=== PATIENT | female | born 1970 | race Caucasian/White ===

== ENCOUNTER → 2020-10-24 | Outpatient (CLI) | payer MEDICARE, OTHER | LOC: OPSV 10-12 08:00 | DX: M06.9 Rheumatoid arthritis, unspecified (principal) | CPT/HCPCS: 96365; 96366; J7050; Q5103 ==

== ENCOUNTER → 2021-04-27 | Outpatient (CLI) | payer MEDICARE, OTHER ==
[~2021-04-27] VITALS: Ht 156.2 cm; Wt 79.4 kg
[2021-04-27 09:32] LABS: BUN/CREATININE RATIO 22 (0-10)
[2021-04-27 09:42] LABS: HEMOGLOBIN 14.1 gm/dl (12.3-15.3); RED BLOOD COUNT 4.21 M/UL (4.00-5.10); WHITE BLOOD COUNT 6.3 K/UL (4.5-11.0)
== END ==
LOC: OPSV 08:00
PROVIDERS: Internal Medicine
DX: M05.9 Rheumatoid arthritis with rheumatoid factor, unspecified (principal); Z79.899 Other long term (current) drug therapy
CPT/HCPCS: 36415; 80053; 85025; 85652; 86140; 96365; 96366; 96375; J1720; J7050; Q5103

== ENCOUNTER → 2021-06-22 | Outpatient (CLI) | payer MEDICARE, OTHER ==
[~2021-06-22] VITALS: Ht 156.2 cm; Wt 79.4 kg
== END ==
LOC: OPSV 08:00
DX: M06.9 Rheumatoid arthritis, unspecified (principal)
CPT/HCPCS: 96365; 96366; 96375; J1720; J7050; Q5103

== ENCOUNTER → 2021-08-17 | Outpatient (CLI) | payer MEDICARE, OTHER ==
[2021-08-17 08:54] LABS: HEMOGLOBIN 15.5 gm/dl (12.3-15.3); RED BLOOD COUNT 4.45 M/UL (4.00-5.10); WHITE BLOOD COUNT 11.1 K/UL (4.5-11.0)
[2021-08-17 09:21] LABS: BUN/CREATININE RATIO 15 (0-10)
== END ==
LOC: OPSV 08:00
PROVIDERS: Internal Medicine
DX: M05.9 Rheumatoid arthritis with rheumatoid factor, unspecified (principal); Z79.899 Other long term (current) drug therapy; M06.9 Rheumatoid arthritis, unspecified
CPT/HCPCS: 80053; 85025; 85652; 86140; 96365; 96366; 96375; J1720; J7050; Q5103

== ENCOUNTER → 2021-10-12 | Outpatient (CLI) | payer MEDICARE, OTHER ==
[~2021-10-12] VITALS: Ht 156.2 cm; Wt 79.4 kg
== END ==
LOC: OPSV 08:00
DX: M06.9 Rheumatoid arthritis, unspecified (principal)
CPT/HCPCS: 96365; 96366; 96375; J1720; J7050; Q5103

== ENCOUNTER → 2022-01-03 | Day surgery (SDC) | payer MEDICARE, OTHER ==
[~2022-01-03] MED LIST: ALBUTEROL2.5 MG/3 M INH; BUSPIRONE HCL15 MG PO; CITALOPRAM HBR10 MG PO; CYCLOBENZAPRINE10 MG PO; ESTRADIOL2 MG PO; HYDROCODON-ACE1 EAC6 PO; IBU800 MG PO; LEVOTHYROXINE125 MC1 PO; METHOTREXATE T2.5 MG PO; OMEPRAZOLE40 MG PO; PLAQUENIL200 MG PO; PROAIR DIGIHAL90 MCG INH; SUMATRIPTAN SU100 MG PO; ZOFRAN ODT 4 MG4 MG GT
== END | disposition home or self-care (01) ==
LOC: OR 06:13
DX: Z12.11 Encounter for screening for malignant neoplasm of colon (principal); D12.3 Benign neoplasm of transverse colon; K31.7 Polyp of stomach and duodenum; K21.00 Gastro-esophageal reflux disease with esophagitis, without bleeding; K44.9 Diaphragmatic hernia without obstruction or gangrene; E66.9 Obesity, unspecified; E03.9 Hypothyroidism, unspecified; K29.70 Gastritis, unspecified, without bleeding; K22.2 Esophageal obstruction; K64.0 First degree hemorrhoids; Z68.32 Body mass index [BMI] 32.0-32.9, adult; Z20.822 Contact with and (suspected) exposure to COVID-19; Z86.16 Personal history of COVID-19
CPT/HCPCS: J2704; J7040